=== PATIENT | female | born 1995 | race Two or more races ===

== ENCOUNTER 2020-07-14 21:35 | Emergency (ER) | payer MEDICAID, OTHER ==
[~2020-07-14] VITALS: Ht 154.9 cm; Wt 114.8 kg
[2020-07-14] MEDS ORDERED: HYDROcodone-ACET 5/325MG TAB PO ONE (23:15)
[2020-07-14 23:49] VITALS: BP 111/75
== END 2020-07-15 00:28 | disposition home or self-care (01) ==
LOC: ER 21:38
DX: S82.832A Other fracture of upper and lower end of left fibula, initial encounter for closed fracture (principal); S93.402A Sprain of unspecified ligament of left ankle, initial encounter; W19.XXXA Unspecified fall, initial encounter; Y93.89 Activity, other specified; Y92.89 Other specified places as the place of occurrence of the external cause; Y99.8 Other external cause status
CPT/HCPCS: 29515; 73610; 73630

== ENCOUNTER 2020-07-20 17:18 | Emergency (ER) | payer MEDICAID ==
[~2020-07-20] VITALS: Ht 154.9 cm; Wt 113.4 kg
[2020-07-20 17:18] VITALS: BP 125/75
== END 2020-07-20 18:28 | disposition left against medical advice (07) ==
LOC: ER 17:18
DX: M79.672 Pain in left foot (principal); Z53.21 Procedure and treatment not carried out due to patient leaving prior to being seen by health care provider